=== PATIENT | male | born 1965 | race Caucasian/White ===

== ENCOUNTER → 2017-03-15 07:52 | Outpatient (CLI) | payer BC ==
[~2017-03-15 07:52] MED LIST: AMBIEN5 MG PO; DILAUDID4 MG PO; ELIQUIS2.5 MG PO; HYDROCODONE-APA1 TAB PO; LISINOPRIL5 MG PO; XARELTO15 MG PO; XARELTO20 MG PO; ZESTRIL20 MG PO
== END | disposition home or self-care (01) ==
LOC: D.NM 07:52
DX: M25.572 Pain in left ankle and joints of left foot (principal); M25.472 Effusion, left ankle